=== PATIENT | male | born 1985 | race Caucasian/White ===

== ENCOUNTER 2017-11-17 23:32 | Emergency (ER) | payer MEDICAID ==
[~2017-11-17] VITALS: Ht 170.2 cm; Wt 68.0 kg
[2017-11-17 23:41] VITALS: BP 105/76
--- NOTE | 2017-11-18 00:36 | NUR ---
PT AMBULATORY TO ER BED 7. PT BIB SELF C/O BACK PAIN X 1 DAY. HX OF HERNIATED DISK L4-L5. PT PLACED IN GOWN AND ON LEATHER POLISHER. VSS/RESP EVEN UNLABORED/NAD NOTED/SKIN WARM AND DRY/DENIES N-V-D/AFEBRILE/AOX4. AWAITING MD HAYES.
[2017-11-18] MEDS ORDERED: KETOROLAC TROMETHAMINE INJ 60 MG/2 ML VIAL IM ONE ×2 (01:19→01:30)
== END 2017-11-18 01:43 | disposition home or self-care (01) ==
LOC: ER 23:36
DX: G89.29 Other chronic pain (principal); M54.5 Low back pain
CPT/HCPCS: 96372; 99283; A4606; J1885; Z7610

== ENCOUNTER 2019-12-05 21:34 | Emergency (ER) | payer OTHER ==
[~2019-12-05] VITALS: Ht 170.2 cm; Wt 78.0 kg
[2019-12-05 21:43] VITALS: BP 137/82
== END 2019-12-05 22:36 | disposition home or self-care (01) ==
LOC: ER 21:34
DX: F32.9 Major depressive disorder, single episode, unspecified (principal); M54.9 Dorsalgia, unspecified; Z76.0 Encounter for issue of repeat prescription